=== PATIENT | female | born 1950 | race Caucasian/White ===

== ENCOUNTER 2021-08-29 18:02 | Observation (INO) | payer MEDICARE, MEDICAID ==
[2021-08-29 18:11] VITALS: BMI 33.4
[2021-08-29] MEDS ORDERED: Acetaminophen 325 MG TAB PO PRN (20:25)
[2021-08-29] MEDS ORDERED: Senokot S 8.6-50 MG TAB PO PRN (20:25)
[2021-08-29] MEDS ORDERED: Bisacodyl 5 MG TAB PO PRN (20:25)
[2021-08-29] MEDS: Apixaban 5 MG TAB PO SCH (23:30)
[2021-08-30 04:18] LABS: #Basophils 0.1 10x3/uL (0.0-0.2); #Eosinphils 0.1 10x3/uL (0.0-0.5); #Monocytes 0.6 10x3/uL (0.0-1.1); #Neutrophils 3.5 10x3/uL (1.5-8.4); %Basophils 0.9 % (0.0-2.0); %Eosinophils 1.9 % (0.0-6.0); %Lymphocytes 39.1 % (18.0-47.0); %Monocytes 7.9 % (0.0-10.0); %Neutrophils 50.1 % (40.0-75.0); Mean Corpuscular HGB CONC 33.6 g/dL (32.0-36.0); Mean Corpuscular Hemoglobin 30.1 pg (27.0-33.0); Mean Corpuscular Volume 89.5 fl (81.6-98.3); Mean Platelet Volume 10.9 fl (7.4-10.4); Platelet Count 267 10x3/uL (150-450); Red Blood Cell (RBC) Count 3.99 10x6/uL (3.90-5.03)
[2021-08-30 04:31] LABS: Anion Gap 11 mmol/L (10-20); BUN (Urea Nitrogen) 14 mg/dL (9.8-20.1); Calc. Creatinine Clearance 85 mL/min (70-130); Carbon Dioxide 28 mmol/L (23-31); Chloride 107 mmol/L (98-107); Potassium 3.8 mmol/L (3.5-5.1); Sodium 142 mmol/L (136-145)
[2021-08-30 04:32] LABS: Calcium 8.5 mg/dL (7.8-10.44); Cholesterol 136 mg/dl (< 200 Desired); Glucose 97 mg/dL (80-115); HDL Cholesterol 27 mg/dL (>60 Neg Risk); LDL Cholesterol, Calculated 82 mg/dL; Triglycerides 133 mg/dL (Less than 150)
[2021-08-30] MEDS: Apixaban 5 MG TAB PO SCH ×2 (08:12→20:31)
[2021-08-30] MEDS: Aspirin 81 mg Enteric Coated Tablet PO SCH (08:13)
[2021-08-30] MEDS ORDERED: Dronedarone HCl 400 MG TAB PO SCH (10:30)
[2021-08-30] MEDS: Dronedarone HCl 400 MG TAB PO SCH (17:08)
[2021-08-31] MEDS: Apixaban 5 MG TAB PO SCH (09:09)
[2021-08-31] MEDS: Aspirin 81 mg Enteric Coated Tablet PO SCH (09:09)
[2021-08-31] MEDS: Dronedarone HCl 400 MG TAB PO SCH ×2 (09:09→17:00)
[2021-08-31 12:57] VITALS: BP 121/78; TEMP 97.8
== END 2021-08-31 18:00 | disposition home or self-care (01) ==
LOC: CSHTELE 18:02 → INTOOBSV 18:02
PROVIDERS: ADMIT Hospitalist; ATTEND Internal Medicine
DX: I48.0 Paroxysmal atrial fibrillation (principal); R29.810 Facial weakness; Z79.899 Other long term (current) drug therapy; Z79.82 Long term (current) use of aspirin; I10 Essential (primary) hypertension; E78.00 Pure hypercholesterolemia, unspecified
CPT/HCPCS: 70551; 80048; 80061; 85025; 94760; G0378

== ENCOUNTER 2022-03-21 11:47 | Emergency (ER) | payer MEDICARE, OTHER | END 2022-03-21 12:45 | disposition home or self-care (01) | LOC: CSHERS 11:47 | DX: S30.860A Insect bite (nonvenomous) of lower back and pelvis, initial encounter (principal); E78.5 Hyperlipidemia, unspecified; I10 Essential (primary) hypertension; Z87.891 Personal history of nicotine dependence; W57.XXXA Bitten or stung by nonvenomous insect and other nonvenomous arthropods, initial encounter | CPT/HCPCS: 99282 ==

== ENCOUNTER 2022-09-28 01:49 | Inpatient (IN) | payer OTHER, MEDICAID ==
[2022-09-28 03:06] LABS: Troponin I Less than 0.010 ng/mL (< 0.028)
[2022-09-28 03:15] LABS: SARS-CoV-2 NAA Rapid Test Not Detected (NotDetected)
[2022-09-28] MEDS ORDERED: Lactated Ringer's 1,000 ML IV SCH (04:45)
[2022-09-28] MEDS ORDERED: Potassium Chloride 20 MEQ TAB PO SCH (05:15)
[2022-09-28 07:01] VITALS: BMI 34.8
[2022-09-28 07:31] LABS: #Basophils 0.1 10x3/uL (0.0-0.2); #Eosinphils 0.1 10x3/uL (0.0-0.5); #Monocytes 0.4 10x3/uL (0.0-1.1); %Eosinophils 1.2 % (0.0-6.0); %Monocytes 6.3 % (0.0-10.0); %Neutrophils 58.4 % (40.0-75.0); Mean Corpuscular HGB CONC 33.8 g/dL (32.0-36.0); Mean Corpuscular Hemoglobin 30.9 pg (27.0-33.0); Mean Corpuscular Volume 91.4 fl (81.6-98.3); Platelet Count 237 10x3/uL (150-450); RBC Distribution Width 13.1 % (11.5-14.5); Red Blood Cell (RBC) Count 4.21 10x6/uL (3.90-5.03); White Blood Cell (WBC) Count 6.8 10x3/uL (3.5-10.5)
[2022-09-28 07:48] LABS: Anion Gap 13 mmol/L (10-20); BUN (Urea Nitrogen) 15 mg/dL (9.8-20.1); Calc. Creatinine Clearance 85 mL/min (70-130); Calcium 8.9 mg/dL (7.8-10.44); Carbon Dioxide 25 mmol/L (23-31); Cardiac Risk 3.3 (Less than 4.5); Chloride 105 mmol/L (98-107); Cholesterol 136 mg/dl (< 200 Desired); Estimated GFR 67; Glucose 122 mg/dL (80-115); HDL Cholesterol 41 mg/dL (>60 Neg Risk); LDL Cholesterol, Calculated 81 mg/dL; Magnesium 1.9 mg/dL (1.6-2.6); Potassium 4.2 mmol/L (3.5-5.1); Sodium 139 mmol/L (136-145); Triglycerides 68 mg/dL (Less than 150)
[2022-09-28] MEDS: Gabapentin 300 MG CAP PO SCH ×2 (08:33→21:50)
[2022-09-28] MEDS: Citalopram 20 MG TAB PO SCH (08:34)
[2022-09-28] MEDS: Apixaban 5 MG TAB PO SCH ×2 (08:34→21:49)
[2022-09-28] MEDS: Carbidopa/Levodopa 25-100 mg Tablet PO SCH (08:34)
[2022-09-28 16:05] LABS: Hemoglobin A1c 5.2 % (4.0-6.0)
[2022-09-28] MEDS: Rosuvastatin 10 MG TAB PO SCH (21:49)
[2022-09-29] MEDS: Carbidopa/Levodopa 25-100 mg Tablet PO SCH ×3 (05:00→21:38)
[2022-09-29] MEDS: Apixaban 5 MG TAB PO SCH ×2 (09:00→21:38)
[2022-09-29] MEDS: Citalopram 20 MG TAB PO SCH (09:00)
[2022-09-29] MEDS ORDERED: Ondansetron PF 4 MG/2 ML Vial IVP SCH (09:00)
[2022-09-29] MEDS: Gabapentin 300 MG CAP PO SCH ×2 (09:00→21:36)
[2022-09-29] MEDS: cefTRIAXone\\ROCEPHIN 1 GM in Sodium Chloride 0.9% 100 ML IVPB SCH (13:00)
[2022-09-29] MEDS: Rosuvastatin 10 MG TAB PO SCH (21:38)
[2022-09-30] MEDS: Citalopram 20 MG TAB PO SCH (09:57)
[2022-09-30] MEDS: Gabapentin 300 MG CAP PO SCH ×2 (09:59→21:27)
[2022-09-30] MEDS: Apixaban 5 MG TAB PO SCH ×2 (09:59→21:28)
[2022-09-30] MEDS: Carbidopa/Levodopa 25-100 mg Tablet PO SCH ×2 (10:07→21:28)
[2022-09-30] MEDS ORDERED: Nystatin Powder 15 GM BOT TOP PRN (11:46)
[2022-09-30] MEDS: cefTRIAXone\\ROCEPHIN 1 GM in Sodium Chloride 0.9% 100 ML IVPB SCH (13:41)
[2022-09-30] MEDS: Rosuvastatin 10 MG TAB PO SCH (21:27)
[2022-10-01] MEDS ORDERED: Citalopram 20 MG TAB PO SCH (09:00)
[2022-10-01] MEDS ORDERED: Loratadine 10 MG TAB PO SCH (09:00)
[2022-10-01 09:02] VITALS: BP 122/72; TEMP 98
[2022-10-01] MEDS: Gabapentin 300 MG CAP PO SCH (09:39)
[2022-10-01] MEDS: Apixaban 5 MG TAB PO SCH (09:39)
[2022-10-01] MEDS: Carbidopa/Levodopa 25-100 mg Tablet PO SCH (09:40)
== END 2022-10-01 12:00 | disposition home or self-care (01) | DRG 312 ==
LOC: CSHERS 01:49 → INTOOBSV 05:33 → CSHTELE 05:33 → OBSVTOIN 09-29 11:56
PROVIDERS: ADMIT Internal Medicine; ATTEND Family Medicine
DX: I95.1 Orthostatic hypotension (principal); N30.00 Acute cystitis without hematuria; R00.1 Bradycardia, unspecified; Z20.822 Contact with and (suspected) exposure to COVID-19; I95.9 Hypotension, unspecified; I48.0 Paroxysmal atrial fibrillation; N18.31 Chronic kidney disease, stage 3a; R73.9 Hyperglycemia, unspecified; I12.9 Hypertensive chronic kidney disease with stage 1 through stage 4 chronic kidney disease, or unspecified chronic kidney disease; E78.5 Hyperlipidemia, unspecified; G20 Parkinson's disease; Z96.651 Presence of right artificial knee joint; Z88.2 Allergy status to sulfonamides; Z88.8 Allergy status to other drugs, medicaments and biological substances; Z88.0 Allergy status to penicillin; Z79.899 Other long term (current) drug therapy; Z90.49 Acquired absence of other specified parts of digestive tract; Z90.710 Acquired absence of both cervix and uterus; Z90.722 Acquired absence of ovaries, bilateral; Z98.49 Cataract extraction status, unspecified eye; Z87.891 Personal history of nicotine dependence; Z82.3 Family history of stroke; Z82.49 Family history of ischemic heart disease and other diseases of the circulatory system; Z79.01 Long term (current) use of anticoagulants
CPT/HCPCS: 36415; 80048; 80061; 83036; 83735; 84484; 85025; 93005; 96374; 99285; G0378; J0696; J2405; J3490; J7120

== ENCOUNTER 2022-11-08 17:52 | Observation (INO) | payer OTHER, MEDICAID ==
[2022-11-08 18:20] VITALS: BMI 35.7
[2022-11-08] MEDS ORDERED: Acetaminophen 325 MG TAB PO PRN (18:38)
[2022-11-08] MEDS: Apixaban 5 MG TAB PO SCH (21:13)
[2022-11-08] MEDS: Rosuvastatin 10 MG TAB PO SCH (21:13)
[2022-11-08] MEDS: Gabapentin 300 MG CAP PO SCH (21:14)
[2022-11-08] MEDS: Diltiazem HCl SR 60 mg Capsule PO SCH (21:14)
[2022-11-08] MEDS: Carbidopa/Levodopa 25-100 mg Tablet PO SCH (21:15)
[2022-11-09] MEDS: Carbidopa/Levodopa 25-100 mg Tablet PO SCH ×2 (02:10→09:46)
[2022-11-09 04:33] LABS: #Basophils 0.1 10x3/uL (0.0-0.2); #Eosinphils 0.1 10x3/uL (0.0-0.5); #Monocytes 0.5 10x3/uL (0.0-1.1); #Neutrophils 3.9 10x3/uL (1.5-8.4); %Basophils 0.7 % (0.0-2.0); %Eosinophils 1.3 % (0.0-6.0); %Lymphocytes 35.2 % (18.0-47.0); %Monocytes 6.5 % (0.0-10.0); Hemoglobin 12.8 g/dL (12.0-15.5); Mean Corpuscular Volume 90.9 fl (81.6-98.3); Mean Platelet Volume 10.9 fl (7.4-10.4); Platelet Count 259 10x3/uL (150-450); RBC Distribution Width 12.7 % (11.5-14.5); Red Blood Cell (RBC) Count 4.27 10x6/uL (3.90-5.03); White Blood Cell (WBC) Count 6.9 10x3/uL (3.5-10.5)
[2022-11-09 04:51] LABS: Anion Gap 16 mmol/L (10-20); BUN (Urea Nitrogen) 17 mg/dL (9.8-20.1); Calc. Creatinine Clearance 86 mL/min (70-130); Calcium 8.8 mg/dL (7.8-10.44); Carbon Dioxide 22 mmol/L (23-31); Chloride 105 mmol/L (98-107); Cholesterol 152 mg/dl (< 200 Desired); Estimated GFR 65; Glucose 93 mg/dL (80-115); HDL Cholesterol 38 mg/dL (>60 Neg Risk); LDL Cholesterol, Calculated 98 mg/dL; Potassium 4.1 mmol/L (3.5-5.1); Sodium 139 mmol/L (136-145); Triglycerides 82 mg/dL (Less than 150)
[2022-11-09] MEDS ORDERED: Aspirin 81 mg Enteric Coated Tablet PO SCH (09:00)
[2022-11-09] MEDS ORDERED: FLU VACC QS2022-23(65YR UP)/PF 240 MCG/0.7 ML SYRINGE IM ONE (09:00)
[2022-11-09] MEDS: Aspirin 81 mg Enteric Coated Tablet PO SCH (09:45)
[2022-11-09] MEDS: Diltiazem HCl SR 60 mg Capsule PO SCH ×2 (09:45→21:29)
[2022-11-09] MEDS: Gabapentin 300 MG CAP PO SCH ×2 (09:46→21:28)
[2022-11-09] MEDS: Apixaban 5 MG TAB PO SCH ×2 (09:46→21:29)
[2022-11-09] MEDS: Citalopram 20 MG TAB PO SCH (09:47)
[2022-11-09] MEDS: Rosuvastatin 10 MG TAB PO SCH (21:28)
[2022-11-10 04:40] LABS: #Basophils 0.1 10x3/uL (0.0-0.2); #Eosinphils 0.1 10x3/uL (0.0-0.5); #Monocytes 0.5 10x3/uL (0.0-1.1); #Neutrophils 3.5 10x3/uL (1.5-8.4); %Eosinophils 1.3 % (0.0-6.0); %Lymphocytes 37.3 % (18.0-47.0); %Monocytes 8.1 % (0.0-10.0); %Neutrophils 52.2 % (40.0-75.0); Hemoglobin 12.8 g/dL (12.0-15.5); Mean Corpuscular Volume 91.1 fl (81.6-98.3); Platelet Count 246 10x3/uL (150-450); RBC Distribution Width 12.7 % (11.5-14.5); Red Blood Cell (RBC) Count 4.26 10x6/uL (3.90-5.03); White Blood Cell (WBC) Count 6.7 10x3/uL (3.5-10.5)
[2022-11-10 04:55] LABS: Anion Gap 14 mmol/L (10-20); BUN (Urea Nitrogen) 19 mg/dL (9.8-20.1); Calc. Creatinine Clearance 90 mL/min (70-130); Carbon Dioxide 25 mmol/L (23-31); Chloride 106 mmol/L (98-107); Estimated GFR 69; Glucose 88 mg/dL (80-115); Potassium 4.3 mmol/L (3.5-5.1); Sodium 141 mmol/L (136-145)
[2022-11-10] MEDS: Diltiazem HCl SR 60 mg Capsule PO SCH (09:18)
[2022-11-10] MEDS: Gabapentin 300 MG CAP PO SCH (09:19)
[2022-11-10] MEDS: Citalopram 20 MG TAB PO SCH (09:19)
[2022-11-10] MEDS: Aspirin 81 mg Enteric Coated Tablet PO SCH (09:19)
[2022-11-10] MEDS: Apixaban 5 MG TAB PO SCH (09:19)
[2022-11-10] MEDS: Carbidopa/Levodopa 25-100 mg Tablet PO SCH (09:19)
[2022-11-10 12:13] VITALS: BP 112/65; TEMP 98
== END 2022-11-10 12:00 | disposition home or self-care (01) ==
LOC: INTOOBSV 17:52 → CSHTELE 17:52
PROVIDERS: ADMIT Internal Medicine; ATTEND Internal Medicine
DX: G45.9 Transient cerebral ischemic attack, unspecified (principal); I12.9 Hypertensive chronic kidney disease with stage 1 through stage 4 chronic kidney disease, or unspecified chronic kidney disease; N18.31 Chronic kidney disease, stage 3a; I48.0 Paroxysmal atrial fibrillation; R20.2 Paresthesia of skin; R20.0 Anesthesia of skin; G20 Parkinson's disease; M79.7 Fibromyalgia; Z88.2 Allergy status to sulfonamides; Z88.0 Allergy status to penicillin; Z79.82 Long term (current) use of aspirin; Z79.899 Other long term (current) drug therapy; Z87.891 Personal history of nicotine dependence; Z79.01 Long term (current) use of anticoagulants; Z20.822 Contact with and (suspected) exposure to COVID-19
CPT/HCPCS: 70551; 80048 ×2; 80061; 85025 ×2; 94760 ×2; 97535; U0003; U0005; G0378